=== PATIENT | male | born 1985 | race Caucasian/White ===

== ENCOUNTER 2016-11-11 02:06 | Emergency (ER) | payer OTHER ==
[~2016-11-11] VITALS: Ht 177.8 cm; Wt 89.0 kg
[2016-11-11 02:12] VITALS: Ht 177.8 cm; Wt 89.0 kg
[2016-11-11] MEDS ORDERED: LORAZEPAM 1 MG TAB PO ONE (03:00)
[2016-11-11 03:04] LABS: ADD SCAN DIFF NO
[2016-11-11 03:06] LABS: ABNORMAL IP MESSAGE 1; BASOPHIL # 0.1 10^3/ul (0.0-0.1); BASOPHILS % 0.4 % (0.0-2.0); EOSINOPHILS % 0.2 % (0.0-7.0); HEMATOCRIT 43.5 % (42.0-52.0); LYMPHOCYTES # 2.6 10^3/ul (0.8-2.9); MEAN CORPUSCULAR HEMOGLOBIN 33.2 pg (29.0-33.0); MEAN CORPUSCULAR HGB CONC 34.5 g/dl (32.0-37.0); MEAN CORPUSCULAR VOLUME 96.2 fl (82.0-101.0); MEAN PLATELET VOLUME 11.1 fl (7.4-10.4); MONOCYTE # 1.6 10^3/ul (0.3-0.9); MONOCYTES % 11.7 % (0.0-11.0); NEUTROPHIL # 9.2 10^3/ul (1.6-7.5); NEUTROPHILS % 68.4 % (39.0-77.0); PLATELET COUNT 230 10^3/UL (140-415); RED BLOOD COUNT 4.52 10^6/ul (4.70-6.10); WHITE BLOOD COUNT 13.5 10^3/ul (4.8-10.8)
--- NOTE | 2016-11-11 03:10 | ERA ---
ER Documentation Chief Complaint Date/Time DATE: 11/11/16 TIME: 03:09 Chief Complaint Psych problem- halllucination" someone trying to kidnap me", denies si/hi HPI 31-year-old male history of bipolar with schizophrenia tendencies who presents emergency room with delusions. The patient states that he relapsed with methamphetamine. He notes over the last several days he has been hearing voices and feels that people are out to get him. He denies any suicidal thoughts. He denies any headache, chest pain, shortness of breath. ROS All systems reviewed and are negative except as per history of present illness. Allergies Allergies: Coded Allergies: Sulfa (Sulfonamide Antibiotics) (Verified Allergy, Unknown, 11/11/16) PMhx/Soc History of Surgery: Yes (left femur fx repair) Anesthesia Reaction: No Hx Neurological Disorder: Yes (cva 04/2016) Hx Respiratory Disorders: No Hx Cardiac Disorders: No Hx Psychiatric Problems: Yes Hx Miscellaneous Medical Probl: No Hx Alcohol Use: Yes Hx Substance Use: Yes Hx Tobacco Use: Yes Smoking Status: Current every day smoker FmHx Family History: No diabetes Physical Exam Vitals Vital Signs Date Time Temp Pulse Resp B/P Pulse Ox O2 Delivery O2 Flow Rate FiO2 11/11/16 02:12 97.8 89 20 160/90 99 Physical Exam General: Well developed, well nourished, no acute distress Head: Normocephalic, atraumatic. Eyes: Pupils equally reactive, EOM intact ENT: Moist mucous membranes Neck: Supple, no lymphadenopathy Respiratory: Lungs clear bilaterally, no distress Cardiovascular: RRR, no murmurs, rubs, or gallops Abdominal: Soft, non-tender, non-distended, no peritoneal signs : Deferred MSK: No edema, no unilateral swelling, 5/5 strength Neurologic: Alert and oriented, moving all extremities, normal speech, no focal weakness, no cerebellar signs Skin: No rash Psych: Delusions of persecution, no suicidal thoughts Result Diagram: 11/11/16 0245 11/11/16 0245 Results 24 hrs Laboratory Tests Test 11/11/16 02:45 White Blood Count 13.510^3/ul Red Blood Count 4.5210^6/ul Hemoglobin 15.0g/dl Hematocrit 43.5% Mean Corpuscular Volume 96.2fl Mean Corpuscular Hemoglobin 33.2pg Mean Corpuscular Hemoglobin Concent 34.5g/dl Red Cell Distribution Width 13.0% Platelet Count 49583^3/UL Mean Platelet Volume 11.1fl Neutrophils % 68.4% Lymphocytes % 19.0% Monocytes % 11.7% Eosinophils % 0.2% Basophils % 0.4% Nucleated Red Blood Cells % 0.0/100WBC Neutrophils # 9.210^3/ul Lymphocytes # 2.610^3/ul Monocytes # 1.610^3/ul Eosinophils # 0.010^3/ul Basophils # 0.110^3/ul Nucleated Red Blood Cells # 0.010^3/ul Sodium Level 138mmol/L Potassium Level 4.0mmol/L Chloride Level 101mmol/L Carbon Dioxide Level 22mmol/L Anion Gap 19 Blood Urea Nitrogen 19mg/dl Creatinine 0.87mg/dl Glucose Level 106mg/dl Calcium Level 9.5mg/dl Total Bilirubin 1.3mg/dl Direct Bilirubin 0.00mg/dl Indirect Bilirubin 1.3mg/dl Aspartate Amino Transf (AST/SGOT) 32IU/L Alanine Aminotransferase (ALT/SGPT) 33IU/L Alkaline Phosphatase 77IU/L Total Protein 8.5g/dl Albumin 5.0g/dl Globulin 3.50g/dl Albumin/Globulin Ratio 1.42 Urine Opiates Screen Negative Urine Barbiturates Negative Urine Amphetamines Screen POSITIVE Urine Benzodiazepines Screen Negative Urine Cocaine Screen Negative Urine Cannabinoids POSITIVE Ethyl Alcohol Level < 10.0mg/dl Current Medications Medications (Trade) Dose Ordered Sig/Nallely Route PRN Reason Start Time Stop Time Status Last Admin Dose Admin Lorazepam (Ativan) 1 mg ONCE ONCE PO 11/11/16 03:00 11/11/16 03:01 DC 11/11/16 03:13 Procedures/MDM LAB INTERPRETATION: Positive for methamphetamines MEDICAL DECISION MAKING: The patient's presentation is consistent with underlying psychiatric illness and likely exacerbation of this illness and/or psychosis. The patient's polysubstance abuse can be exacerbating the symptoms as well. I have a much lower clinical concern for delirium or acute organic pathology such as toxicologic, metabolic, ischemic, intracranial hemorrhage, infectious process. However, we must rule this out prior to relying a diagnosis of underlying psychiatric illness. The patient's workup will include medical screening examination, laboratory analysis, and diagnostic imaging such as EKG, chest x-ray or CT brain as indicated. If the patient's medical examination and laboratory analysis do not reveal acute organic pathology the patient will be medically cleared for psychiatric evaluation. ER COURSE: Ativan provided. The patient's laboratory analysis, diagnostic imaging do not suggest an acute organic pathology. At this time I believe the patient's presentation is very consistent with underlying psychiatric illness. The patient is medically cleared for psychiatric evaluation. I kept the patient and/or family informed of laboratory and diagnostic imaging results throughout the emergency room course. CONSULTATION: Psychiatric consultation: Telemetry medicine psychiatry has been consulted on this case to evaluate the patient for possible acute psychiatric illness that would require inpatient hospitalization. DISPOSITION PLAN: Pending psychiatric evaluation Departure Diagnosis: Primary Impression: Methamphetamine abuse Additional Impressions: Delusion of persecution Acute psychosis Condition: Stable PAULINA AGUILAR MD Nov 11, 2016 03:10
[2016-11-11 03:17] LABS: CHLORIDE 101 mmol/L (97-110); SODIUM 138 mmol/L (135-144)
[2016-11-11 03:19] LABS: ALBUMIN/GLOBULIN RATIO 1.42; ALKALINE PHOSPHATASE 77 IU/L (42-121); ANION GAP 19 (8-16); ASPARTATE AMINO TRANSFERASE 32 IU/L (15-46); BILIRUBIN,INDIRECT 1.3 mg/dl (0-1.1); BILIRUBIN,TOTAL 1.3 mg/dl (0.2-1.3); BLOOD UREA NITROGEN 19 mg/dl (7-20); CARBON DIOXIDE 22 mmol/L (21-31); CREATININE 0.87 mg/dl (0.61-1.24); TOTAL PROTEIN 8.5 g/dl (6.1-8.1)
[2016-11-11 03:20] LABS: ALANINE AMINOTRANSFERASE 33 IU/L (13-69); CALCIUM 9.5 mg/dl (8.4-10.2); GLUCOSE 106 mg/dl (70-220)
[2016-11-11 03:25] LABS: ETHANOL < 10.0 mg/dl
[2016-11-11 03:32] LABS: BARBITURATES Negative (NEGATIVE); BENZODIAZEPINES Negative (NEGATIVE); CANNABINOIDS POSITIVE (NEGATIVE); COCAINE Negative (NEGATIVE); OPIATES Negative (NEGATIVE)
[2016-11-11] MEDS ORDERED: OLANZAPINE (ODT) 5 MG TAB ODT STA (05:42)
--- NOTE | 2016-11-11 05:55 | PSY ---
Date/Time of Note Date/Time of Note DATE: 11/11/16 TIME: 05:41 Psychiatric Subjective Eval Consent Pt consented to telemedicine: Yes Subjective Evaluation Patient location: emergency Chief Complaint: Psych problem- halllucination" someone trying to kidnap me", denies si/hi Reason for consult: psych eval History of present illness patient is a 31 yo male with PPH Of depression and amphetamine abuse, homeless who came to the ER due to having aud. and visu . hallucination and feeling paranoid after using methamphetamine, he is aware that his psychosis is due to amphetamine , it has happened in the past, patient is really drowsy during the interview, falling asleep, disorganized, states that he hears voices, denies any si or hi. Past psychiatric history one past suicidal attempt Hospitalization: yes Family History no Medical history Problems Medical Problems: (1) Acute psychosis Status: Acute (2) Delusion of persecution Status: Acute (3) Methamphetamine abuse Status: Acute Allergies: Coded Allergies: Sulfa (Sulfonamide Antibiotics) (Verified Allergy, Unknown, 11/11/16) Substance Abuse Substance abuse history: Yes (metamphetamine) Prior substance abuse treatmen: No Social History Marital status: single Level of education: hs DPA/Conservatorship: No Occupation/Detention: unemployed Psychiatric Objective Eval Review of Systems: Review of Systems: Not Applicable Physical Examination: Physical Examination: Applicable Sleep: Insomnia Appetite: Decreased, Weight Loss Energy: Decreased Interest: Decreased Mental Status Examination: Appearance: Disheveled Eye Contact: Poor Psychomotor Activity: Slow Behavior: Cooperative Speech: Disorganized AFFECT: Constricted, Other Mood: Depressed Though Process: Loose Thought Content: Hallucinations Suicidal: No Homicidal: No Orientation: x1 Cognition: Drowsy Insight: Impared Judgement: Impared Attention Span: Distractible Laboratory Results Laboratory Tests Test 11/11/16 02:45 White Blood Count 13.510^3/ul Red Blood Count 4.5210^6/ul Hemoglobin 15.0g/dl Hematocrit 43.5% Mean Corpuscular Volume 96.2fl Mean Corpuscular Hemoglobin 33.2pg Mean Corpuscular Hemoglobin Concent 34.5g/dl Red Cell Distribution Width 13.0% Platelet Count 85388^3/UL Mean Platelet Volume 11.1fl Neutrophils % 68.4% Lymphocytes % 19.0% Monocytes % 11.7% Eosinophils % 0.2% Basophils % 0.4% Nucleated Red Blood Cells % 0.0/100WBC Neutrophils # 9.210^3/ul Lymphocytes # 2.610^3/ul Monocytes # 1.610^3/ul Eosinophils # 0.010^3/ul Basophils # 0.110^3/ul Nucleated Red Blood Cells # 0.010^3/ul Sodium Level 138mmol/L Potassium Level 4.0mmol/L Chloride Level 101mmol/L Carbon Dioxide Level 22mmol/L Anion Gap 19 Blood Urea Nitrogen 19mg/dl Creatinine 0.87mg/dl Glucose Level 106mg/dl Calcium Level 9.5mg/dl Total Bilirubin 1.3mg/dl Direct Bilirubin 0.00mg/dl Indirect Bilirubin 1.3mg/dl Aspartate Amino Transf (AST/SGOT) 32IU/L Alanine Aminotransferase (ALT/SGPT) 33IU/L Alkaline Phosphatase 77IU/L Total Protein 8.5g/dl Albumin 5.0g/dl Globulin 3.50g/dl Albumin/Globulin Ratio 1.42 Urine Opiates Screen Negative Urine Barbiturates Negative Urine Amphetamines Screen POSITIVE Urine Benzodiazepines Screen Negative Urine Cocaine Screen Negative Urine Cannabinoids POSITIVE Ethyl Alcohol Level < 10.0mg/dl Assessment and Plan Assessment/Diagnosis [place] I: amphetamine induced psychosis [place] II: deferred [place] III: as per record [place] IV: homeless [place] V: gaf 25 Recommendation/Plan Medication Management please give patient haldol 5 mg with ativan 2 mg and beandryl 50 mg im stat for psychosis Follow-up/Disposition once patient medicated with haldol and rested he should be able to be discharged if not reevaluate with psych ORESTES MILLER MD Nov 11, 2016 05:51
[2016-11-11 12:22] VITALS: BP 125/71; PULSE 66; RESP 17; TEMP 97.4
--- NOTE | 2016-11-11 13:40 | EN ---
Date/Time of Note Date/Time of Note DATE: 11/11/16 TIME: 13:39 ER Progress Note Patient is in no acute distress, not homicidal, not suicidal. Alert and oriented to person place and time. Patient will be discharged at this time. He states he has feels safe with discharge and has somewhere safe to go ADRIAN VALDEZ DO Nov 11, 2016 13:40
== END 2016-11-11 14:53 | disposition home or self-care (01) ==
LOC: E/R 02:06
DX: F15.10 Other stimulant abuse, uncomplicated (principal); F23 Brief psychotic disorder; F17.210 Nicotine dependence, cigarettes, uncomplicated
CPT/HCPCS: 36415; 80053; 80306; 80307; 85025; 99283